=== PATIENT | male | born 1990 | race Caucasian/White ===

== ENCOUNTER 2020-05-30 06:55 | Day surgery (SDC) | payer OTHER ==
[~2020-05-30] VITALS: Ht 182.9 cm; Wt 75.9 kg
--- NOTE | 2020-05-30 10:15 | NUR ---
PT IS BACK TO FROM PACU. HE REQUESTING PUDDING. TOLERATING WATER. CALL LIGHT WITHIN REACH. NO ADDITIONAL NEEDS AT THIS TIME.
--- NOTE | 2020-05-30 10:16 | NUR ---
05/30/20 1016 Celena Calvillo 0929 PT ARRIVED IN PACU NON RESPONSIVE TO NOXIOUS STIMULI WITH OPA IN PLACE. ICE PLACED TO L BUTTOCKS. 0952 PT REACTIVE. OPA REMOVED. SITTING UP IN BED TALKING TO STAFF. 1010 TO DS. REPORT GIVEN TO RN. CALL LIGHT GIVEN TO PT.
--- NOTE | 2020-05-30 10:20 | OR ---
[facility] [address], [place] [address] Signed DATE OF OPERATION: 05/30/2020 SURGEON: Cameron Giorn MD PREOPERATIVE DIAGNOSES: Unknown 3 cm subcutaneous mass, left upper posterior thigh/medial gluteal/perianal area. POSTOPERATIVE DIAGNOSIS: Unknown 3 cm subcutaneous mass, left upper posterior thigh/medial gluteal/perianal area. PROCEDURE: Excision of subcutaneous mass. ESTIMATED BLOOD LOSS: None. INDICATIONS: Mónica is a 30-year-old gentleman, who was asked to see me for subcutaneous mass. It proved to be actually in the gluteal area in between the anus and the gluteal crease on the left posterior thigh. He is very athletic and thinks maybe he got a splinter in that area a couple years ago. More recently, he went on a 100-mile bike ride and he said that really bothered him significantly. He had an ultrasound done and no definitive diagnosis could be offered. To his knowledge, it has never been infected or drained. He remains very athletic with his bicycle and snowboarding and so forth. He was therefore asked to see me to have it removed for definitive diagnosis and treatment. In the office, I explained to Mónica the nature incision required to remove that lesion. He understands there is risk of surgery including, but not limited to bleeding, infection, scarring, change in contour of the skin as well as recurrent lesions in the same or other locations. He had expressed understanding and wished to proceed. DESCRIPTION OF PROCEDURE: I met with Mónica in our preop area. We both identified and marked the lesion quite easily. 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 Consequently, he is somewhat familiar with this whole process. For him, we decided on the prone position for best exposure. He had been taken to the operating room and placed under general endotracheal tube anesthesia. He was rotated in the prone slightly salo-knife position with appropriate padding and monitoring. He was given preoperative antibiotics along with subcutaneous heparin. SCDs were utilized. He was then prepped and draped in the usual sterile fashion. We made an oblique incision over the lesion that was parallel to his gluteal crease between the gluteus and thigh. The lesion Electronically Signed By: CAMERON GIRON MD 05/30/20 1020 PATIENT NAME: MÓNICA PATEL OPERATIVE REPORT DATE OF : [birth year] REPORT #: [id number] PHYSICIAN: CAMERON GIRON MD PCP: CHASITY HERNANDEZ MD REPORT IS CONFIDENTIAL AND NOT TO BE RELEASED WITHOUT AUTHORIZATION [facility] [address], [place] [address] Signed proved to be actually in the gluteal area midway between the gluteal crease and the crease between his gluteus and the thigh. We went down around the lesion carefully with the cautery and it looks like a multilobulated lipoma. It is a little more dense and firm and fibrotic than usual. After this, the wound was infiltrated with local anesthetic and irrigated until clear. We brought the dermis together with interrupted 3-0 Monocryl sutures. Skin edges were reapproximated with a running 5-0 fast absorbing plain gut suture. Dry gauze and tape then were applied. Mónica was rotated into the supine position on his hospital bed, weaned from his anesthesia, extubated in the OR, and taken to the recovery room in stable condition. Cameron Giron MD ALB/MODL /[id number] cc: MD Chasity Beard MD Copies: CAMERON GIRON MD, RUSSELL BARR MD ~ Electronically Signed By: CAMERON GIRON MD 05/30/20 1020 PATIENT NAME: MÓNICA PATEL OPERATIVE REPORT DATE OF : [birth year] REPORT #: [id number] PHYSICIAN: CAMERON GIRON MD PCP: CHASITY HERNANDEZ MD REPORT IS CONFIDENTIAL AND NOT TO BE RELEASED WITHOUT AUTHORIZATION
[2020-05-30] MEDS ORDERED: NORCO 10-325 T1 EACH PO (10:31)
--- NOTE | 2020-05-30 11:36 | NUR ---
ANA 1110: PT IS EDUCATED ON HOW TO BEST DRESS HIMSELF AND TO OPEN HIS CURTAIN WHEN READY. HE IS GIVEN VERBAL DC INSTRUCTIONS, HE VERBALIZES UNDERSTANDING WITH REPEAT BACK. HIS QUESTIONS ARE ASKED AND ANSWERED. HE IS TAKEN TO CAR IN , HE IS ABLE TO TRANSFER HIMSELF FROM TO CAR.
--- NOTE | 2020-06-08 16:34 | PATH ---
[facility] [address], [place] [address] Signed SPECIMEN(S): A LEFT THIGH, GLUTEAL SPECIMEN SOURCE: A. LEFT THIGH, GLUTEAL CLINICAL HISTORY: Excision subcutaneous mass, proximal left thigh/gluteal. FINAL PATHOLOGIC DIAGNOSIS: Soft tissue, proximal left thigh/gluteal subcutaneous mass, excision: - Lipomatous neoplasm, final diagnosis pending additional studies. COMMENT: Sections demonstrate lobules of mature fibroadipose tissue transected by disorganized collagen bands containing bland spindled cells. Areas of fibromyxoid stroma are present and rare cells suspicious for univacuolated lipoblasts are present. There is no overt cellular atypia, increased mitoses, or necrosis. A CD34 immunohistochemical stain (with appropriately staining controls) appears to be positive in the spindled cells. The differential diagnosis includes a lipoma or an atypical lipomatous tumor. Fluorescence in situ hybridization (FISH) for MDM2 and CDK4 , which will aid in this differential, is pending and will be reported in an addendum. As part of [employer]' Quality Improvement Program, this case was reviewed by multiple members of our pathology staff. NAL:cml:C2NR MICROSCOPIC EXAMINATION: Histologic sections of all submitted blocks are examined by light microscopy. These findings, together with the gross examination, support the pathologic diagnosis. GROSS DESCRIPTION: The specimen, labeled "DANDRE, A.," and designated on the requisition "subcutaneous mass, proximal left thigh/gluteal," is received in formalin and consists of irregular shaped, circumscribed, fatty tissue nodule measuring 3.3 x 2.5 x 2.0 cm. The specimen is inked blue and serially sectioned revealing a fibroadipose surface with a possible adherent caseous cyst measuring 1.5 x 1.5 x 1.0 cm. Explosive Expert sections are submitted in cassettes (A1-A3); cassette (A3) with possible cyst with and without adherent tissue. PATIENT NAME: MÓNICA PATEL PATHOLOGY DATE OF : [birth year] REPORT #: [id number] PHYSICIAN: ANNIE PATHOLOGY PCP: CHASITY HERNANDEZ MD REPORT IS CONFIDENTIAL AND NOT TO BE RELEASED WITHOUT AUTHORIZATION [facility] [address], [place] [address] Signed AT (under the direct supervision of a pathologist) The Gross Description was prepared using a voice recognition system. The report was reviewed for accuracy; however, sound-alike word errors, addition and/or deletions may occur. If there is any question about this report, please contact Client Services. PERFORMING LABORATORY: The technical component was performed by [facility] [employer], [address] [place] [id number] (Steward Dishwasher: Bouchra Faulkner MD; CLIA# [id number]). Professional interpretation was performed by [employer], [facility] branch, [address] [address] (CLIA# [id number]). Diagnostician: Lexi Mesa MD Pathologist Electronically Signed 06/08/2020 Copies: ~ PATIENT NAME: MÓNICA PATEL PATHOLOGY DATE OF : [birth year] REPORT #: [id number] PHYSICIAN: ANNIE CLAY PCP: CHASITY HERNANDEZ MD REPORT IS CONFIDENTIAL AND NOT TO BE RELEASED WITHOUT AUTHORIZATION
== END 2020-05-30 11:25 | disposition home or self-care (01) ==
LOC: DS 06:55
PROVIDERS: ATTEND Colon & Rectal Surgery
PROC: 0JBM0ZZ Excision of Left Upper Leg Subcutaneous Tissue and Fascia, Open Approach (ICD-10-PCS; principal; 2020-05-30 08:00)
DX: D17.39 Benign lipomatous neoplasm of skin and subcutaneous tissue of other sites (principal)
CPT/HCPCS: 00300; J0690; J1100; J1644; J1885; J2001; J2250; J2704; J3010; J7121